=== PATIENT | female | born 1995 | race Caucasian/White ===

== ENCOUNTER → 2019-02-28 09:02 | Outpatient (CLI) | payer BC, SELFPAY ==
--- NOTE | 2019-02-28 | DI.US.S_ITS ---
PROCEDURE: US PELVIC COMPLETE INDICATIONS: RIGHT OVARIAN CYST TECHNIQUE: Real-time scanning was performed of the pelvic organs, with image documentation. Additional endovaginal scanning was necessary due to incomplete visualization of the adnexal and endometrial structures by transabdominal scanning. COMPARISON: [facility]. FINDINGS: Transabdominal scanning: Limited scanning through the kidneys shows no hydronephrosis. There is a mild amount of free fluid seen adjacent to the right ovary, which is considered to be within physiologic limits. Endovaginal scanning: Uterus: Uterus is normal in size at 6.5 x 3.6 x 5.6 cm. The endometrium measures 14 mm in combined thickness. Ovaries: The right ovary measures 4.4 x 2.3 x 3.4 cm. Within the right ovary, there is a complex cyst with increased peripheral vascularity that measures 2.1 x 1.8 x 1.9 cm. On the prior study, there was a hyperechoic solid appearing mass seen and measured 2.1 x 1.5 x 1.6 cm, which is no longer definitely seen. The left ovary measures 3.5 x 1.5 x 3.6 cm and demonstrates an unremarkable sonographic appearance. IMPRESSION: Likely right ovary and hemorrhagic cyst, with adjacent free fluid. At clinical discretion, a followup pelvic ultrasound is suggested in 6 weeks to assure resolution/ improvement. The previously seen 2.1 cm hyperechoic solid appearing right ovarian lesion is no longer definitely seen. Dictated by: Alcon Pitt M.D. on 02/28/2019 at 11:47 Approved by: Alcon Pitt M.D. on 02/28/2019 at 11:52
== END ==
PROVIDERS: Visit Provider Specialist
DX: N83.291 Other ovarian cyst, right side (principal)
CPT/HCPCS: 76830; 76856